=== PATIENT | female | born 1960 | race Caucasian/White ===

== ENCOUNTER → 2016-12-03 | Outpatient (CLI) | payer BC ==
--- NOTE | 2016-12-03 09:03 | MR ---
MRI CERVICAL SPINE: CLINICAL HISTORY: Cervicalgia per order. Headaches with neck pain causing tingling and pain in arm an d hands per patient. TECHNIQUE: Multiplanar, multisequence imaging of the cervical spine is performed without with IV cont rast. COMPARISON: None. FINDINGS: Sagittal images of the cervical spine show the craniocervical junction to appear within nor mal limits. The cervical and upper thoracic spinal cord is normal in course, caliber, and signal. Th ere is slight levoconvex scoliotic curvature centered at the cervical thoracic junction which correla michel with CTA chest March 23, 2014. The vertebral body and intravertebral disk heights are normal. Sma ll posterior disc herniations are seen at C4-C5 through C6-C7 levels on sagittal images. Mild anterio r spurring is present at these levels. The bone marrow signal intensity is within normal limits. Axial images show the C2-C3 and C3-C4 levels to appear within normal limits. Axial images at C4-C5 level show lobulated broad-based posterior disc protrusion mildly effacing ante rolateral thecal sac, bilateral neural foramina are patent. Axial images at C5-C6 level lobulated broad-based posterior disc protrusion mildly effacing the anter ior thecal sac with some posterior spurring, bilateral neural foramina are mildly narrowed as there i s some uncovertebral facet arthropathy at this level also present. Axial images at the C6-C7 level show broad-based posterior disc protrusion mildly effacing anterior t hecal sac, there is mild to moderate bilateral neural foraminal narrowing at this level identified. Axial images at C7-T1 level are felt within normal limits. IMPRESSION: Some multilevel degenerative changes in the mid to lower cervical spine as detailed above .
== END | disposition home or self-care (01) ==
LOC: RADMRIMAIN 08:08
PROVIDERS: ATTEND Physician Assistant
DX: M47.812 Spondylosis without myelopathy or radiculopathy, cervical region (principal)
CPT/HCPCS: 72141

== ENCOUNTER → 2017-02-25 | Outpatient (CLI) | payer BC | END | disposition home or self-care (01) | LOC: LABWHC1 11:27 | PROVIDERS: ATTEND Internal Medicine Endocrinology, Diabetes & Metabolism | DX: E03.8 Other specified hypothyroidism (principal) | CPT/HCPCS: 36415; 84443 ==

== ENCOUNTER → 2017-12-16 | Outpatient (CLI) | payer BC ==
[2017-12-16 13:11] LABS: HCT 36.2 % (34.0-46.0); HGB 12.1 gm/dL (11.4-16.0); MCH 32.9 pg (25.0-35.0); MCHC 33.5 g/dL (31.0-37.0); MCV 98.2 fL (80.0-100.0); Mean Platelet Volume 7.5; Platelet Count 316 k/uL (150-450); RBC 3.69 m/uL (3.80-5.40); RDW 13.4 % (11.5-15.5); WBC 7.4 k/uL (3.8-10.6)
[2017-12-16 13:37] LABS: ALT 28 U/L (9-52); AST 21 U/L (14-36)
== END | disposition home or self-care (01) ==
LOC: LABWHC1 12:30
PROVIDERS: ATTEND Psychiatry & Neurology Neurology
DX: G35 Multiple sclerosis (principal)
CPT/HCPCS: 36415; 84450; 84460; 85027; 86480

== ENCOUNTER → 2018-02-11 | Outpatient (CLI) | payer BC ==
[2018-02-11 11:22] VITALS: BP 153/78; PULSE 91; TEMP 97.3; BMI 35.7
--- NOTE | 2018-02-11 12:14 | P.HPOB ---
History of Present Illness H&P Date: 02/11/18 Chief Complaint: The patient is here for her routine gynecologic exam and mammogram. This is a 57-year-old G3 PIII with an LMP of 2004. The patient is here to establish with this office. She states it has been about 20 years since her last pelvic exam. She denies any postmenopausal bleeding. She states she has a small mole between the vulva and leg that she has had "forever" that she would like to have checked. She did have hot flashes but these have improved significantly. She is otherwise without gynecologic complaints. Review of Systems Her weight has been stable. She denies respiratory, cardiac, or G.I. problems. Past Medical History Past Medical History: GERD/Reflux, Hyperlipidemia, Hypertension, Thyroid Disorder (Hypothyroid) Additional Past Medical History / Comment(s): Past ANIMAL HUSBANDRY WORKER history: she has no history of STDs. She had one followed by 2 vaginal deliveries. History of Any Multi-Drug Resistant Organisms: None Reported Past Surgical History: Section Additional Past Surgical History / Comment(s): Colonoscopy 2015 and this was her 2nd. Past Psychological History: Depression Smoking Status: Light tobacco smoker (About 3 cigarettes per day down from half pack per day.) Past Alcohol Use History: None Reported Past Drug Use History: None Reported Additional History: She has been since 1993 and is a certified clinical nursing instructor at the [employer]. Medications and Allergies Home Medications Medication Instructions Recorded Confirmed Type Baclofen [Lioresal] 10 mg PO BID 03/04/14 02/11/18 History Gabapentin [Neurontin] 900 mg PO BID 03/04/14 03/23/14 History Levothyroxine Sodium [Synthroid] 175 mcg PO DAILY 03/04/14 03/23/14 History Lisinopril-Hctz 20-25 mg 1 each PO DAILY 03/04/14 02/11/18 History [Zestoretic 20-25] Meclizine [Antivert] 25 mg PO DAILY PRN 03/04/14 02/11/18 History Primidone [Mysoline] 50 mg PO DAILY 03/04/14 02/11/18 History traZODone HCL [traZODone] 150 mg PO DAILY 03/04/14 02/11/18 History Amantadine HCl [Symmetrel] 0 mg PO BID 03/23/14 02/11/18 History Cetirizine HCl [Zyrtec] mg PO DAILY 02/11/18 History Cholecalciferol (Vitamin D3) 3,000 unit PO DAILY 02/11/18 02/11/18 History [Vitamin D3] Ibuprofen [Motrin] mg PO BID 02/11/18 History Omeprazole [PriLOSEC] mg PO DAILY 02/11/18 History Teriflunomide [Aubagio] mg PO DAILY 02/11/18 History Venlafaxine HCl [Effexor] mg PO BID 02/11/18 History Allergies Allergy/AdvReac Type Severity Reaction Status Date / Time No Known Allergies Allergy Verified 02/11/18 11:22 Exam - Vital Signs Vital signs: Vital Signs Temp Pulse BP 02/11/18 11:16 97.3 F L 91 153/78 Intake and Output 02/10/18 02/11/18 02/11/18 22:59 06:59 14:59 Other: Weight 83.007 kg Height 5'8", BMI 35.7. This is a well-developed well-nourished heavyset white female who is alert and oriented times 3 in no acute distress. HEENT: Within normal limits. NECK: Supple without mass or thyromegaly. CHEST AND LUNGS: Clear to auscultation. HEART: Regular rate and rhythm. BREASTS: Are without mass or discharge. AXILLARY EXAM: Negative for adenopathy. BACK: Negative for CVA tenderness. ABDOMEN: Soft, mildly obese, nontender, without palpable masses. PELVIC EXAM: Normal external genitalia with minimal atrophy. Cervix and vagina appear normal with mild atrophy. There is no unusual discharge. There is no evidence of prolapse. The uterus is midposition, nongravid size and nontender. There are no palpable adnexal masses or tenderness. There is a benign appearing skin tag in the crease between the vulva and left leg which measures approximately 9 x 9 x 9 mm. It is soft and nontender. The patient states that it is been there for more than 20 years.. RECTAL EXAM: rectovaginal exam is negative for mass or tenderness and is negative for occult blood. EXTREMITIES: Nontender. IMPRESSION: 1. 57-year-old menopausal female with normal gynecologic exam. 2. Benign appearing skin tag in the left groin crease. PLAN: 1. Pap smear was performed. 2. Self breast examination was discussed. 3. Screening mammogram will be done today. 4. Osteoporosis prevention was discussed. I recommended bone density screening next year. 5. I have reassured the patient about the benign appearing skin tag. She will call if it is changing or if it is bothersome to her. 6. She will return in one year. I have stressed the importance of yearly pelvic exams and mammograms.
--- NOTE | 2018-02-16 07:13 | MM ---
Reason for exam: screening (asymptomatic). Last mammogram was performed 1 year and 9 months ago. History: Patient is postmenopausal. Physical Findings: A clinical breast exam by your physician is recommended on an annual basis and results should be correlated with mammographic findings. MG Screening Mammo w CAD Bilateral CC and MLO view(s) were taken. Prior study comparison: May 21, 2016, mammogram, performed at [facility]. July 07, 2008, bilateral digital screening mammogram. April 29, 2007, bilateral screening mammogram w/CAD. The breast tissue is heterogeneously dense. This may lower the sensitivity of mammography. Finding: There are typically benign dystrophic, round, regional calcifications in the anterior, central position of the left breast. There is no discrete abnormality. ASSESSMENT: Benign, BI-RAD 2 RECOMMENDATION: Routine screening mammogram of both breasts in 1 year.
== END | disposition home or self-care (01) ==
LOC: WWCWWP 10:58
PROVIDERS: ATTEND Obstetrics & Gynecology
DX: Z12.31 Encounter for screening mammogram for malignant neoplasm of breast (principal)
CPT/HCPCS: 77067

== ENCOUNTER 2018-04-26 22:49 | Emergency (ER) | payer BC ==
[2018-04-26 22:58] VITALS: RESP 18
[2018-04-26] MEDS ORDERED: SODIUM CHLORIDE 0.9% 1,000 ML IV STA (23:02)
--- NOTE | 2018-04-26 23:16 | ED ---
General Adult HPI - General Chief complaint: Syncope Stated complaint: Fall, Head Injury Time Seen by Provider: 04/26/18 23:01 Source: patient, RN notes reviewed, old records reviewed Mode of arrival: wheelchair Limitations: no limitations - History of Present Illness Initial comments: This is a 4-year-old female the ER for evasive syncopal event. Patient has significant times to arouse just prior to get a for work. Patient denies chest pain headache abdominal pain. Patient comes ER no prior history of syncope. No significant history of heart disease or heart attack. Again no chest pain no headache no recent nausea vomiting or illness. No diarrhea. Patient states she did not feel lightheaded or dizzy prior to event she does have a collapse. No significant symptoms prior to event and currently no significant symptoms after. - Related Data Home Medications Medication Instructions Recorded Confirmed Baclofen [Lioresal] 10 mg PO BID 03/04/14 02/11/18 Gabapentin [Neurontin] 900 mg PO BID 03/04/14 03/23/14 Levothyroxine Sodium [Synthroid] 175 mcg PO DAILY 03/04/14 03/23/14 Lisinopril-Hctz 20-25 mg 1 each PO DAILY 03/04/14 02/11/18 [Zestoretic 20-25] Meclizine [Antivert] 25 mg PO DAILY PRN 03/04/14 02/11/18 Primidone [Mysoline] 50 mg PO DAILY 03/04/14 02/11/18 traZODone HCL [traZODone] 150 mg PO DAILY 03/04/14 02/11/18 Amantadine HCl [Symmetrel] 0 mg PO BID 03/23/14 02/11/18 Cetirizine HCl [Zyrtec] mg PO DAILY 02/11/18 Cholecalciferol (Vitamin D3) 3,000 unit PO DAILY 02/11/18 02/11/18 [Vitamin D3] Ibuprofen [Motrin] mg PO BID 02/11/18 Omeprazole [PriLOSEC] mg PO DAILY 02/11/18 Teriflunomide [Aubagio] mg PO DAILY 02/11/18 Venlafaxine HCl [Effexor] mg PO BID 02/11/18 Allergies Allergy/AdvReac Type Severity Reaction Status Date / Time No Known Allergies Allergy Verified 04/26/18 22:58 Review of Systems ROS Statement: Those systems with pertinent positive or pertinent negative responses have been documented in the HPI. ROS Other: All systems not noted in ROS Statement are negative. 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 She had one followed by 2 vaginal deliveries. History of Any Multi-Drug Resistant Organisms: None Reported Past Surgical History: Section Additional Past Surgical History / Comment(s): Colonoscopy 2016 and this was her 2nd. Past Psychological History: Anxiety, Depression Smoking Status: Former smoker Past Alcohol Use History: None Reported Past Drug Use History: None Reported General Exam Limitations: no limitations General appearance: alert, in no apparent distress Head exam: Present: atraumatic, normocephalic, normal inspection Eye exam: Present: normal appearance, PERRL, EOMI. Absent: scleral icterus, conjunctival injection, periorbital swelling ENT exam: Present: normal exam, mucous membranes moist Neck exam: Present: normal inspection. Absent: tenderness, meningismus, lymphadenopathy Respiratory exam: Present: normal lung sounds bilaterally. Absent: respiratory distress, wheezes, rales, rhonchi, stridor Cardiovascular Exam: Present: regular rate, normal rhythm, normal heart sounds. Absent: systolic murmur, diastolic murmur, rubs, gallop, clicks GI/Abdominal exam: Present: soft, normal bowel sounds. Absent: distended, tenderness, guarding, rebound, rigid Extremities exam: Present: normal inspection, full ROM, normal capillary refill. Absent: tenderness, pedal edema, joint swelling, calf tenderness Back exam: Present: normal inspection Neurological exam: Present: alert, oriented X3, CN II-XII intact Psychiatric exam: Present: normal affect, normal mood Skin exam: Present: warm, dry, intact, normal color. Absent: rash Course Vital Signs 04/26/18 04/26/18 04/27/18 22:52 23:19 00:29 Temperature 97.8 F Pulse Rate 85 83 Pulse Rate [ 76 Analysis Or Research Safety Inspector ] Respiratory Rate Blood Pressure 84/51 113/57 Blood Pressure [Sitting] Blood Pressure [Standing] Blood Pressure 95/50 [Supine] O2 Sat by Pulse 97 96 Oximetry 07/07/0704/27/18 04/27/18 00:31 00:33 01:50 Temperature Pulse Rate 72 Pulse Rate [ 86 86 Analysis Or Research Safety Inspector ] Respiratory 18 Rate Blood Pressure 113/59 Blood Pressure 99/57 [Sitting] Blood Pressure 107/58 [Standing] Blood Pressure [Supine] O2 Sat by Pulse 98 Oximetry - Reevaluation(s) Reevaluation #1: 04/27/18 02:03 Spoke with patient at length regarding normal findings, normal rhythm strip, patient ambulate without difficulty emergency room, has no complaints EKG Findings - EKG Comments: EKG Findings:: EKG shows sinus rhythm rate of 85, OR 196, QRS 80, QTC 4:30 Medical Decision Making - Medical Decision Making 58 female the ER for evaluation regarding syncopal event today. Patient is CT which is negative, labwork which is normal. No headache chest pain shortness of breath or abdominal pain. Patient without complaint currently. Patient can be discharged home - Lab Data Result diagrams: 04/26/18 23:08 04/26/18 23:08 Lab Results 04/26/18 04/26/18 04/26/18 Range/Units 23:08 23:08 23:08 WBC 12.6 H (3.8-10.6) k/uL RBC 4.65 (3.80-5.40) m/uL Hgb 14.4 (11.4-16.0) gm/dL Hct 42.6 (34.0-46.0) % MCV 91.8 (80.0-100.0) fL MCH 31.0 (25.0-35.0) pg MCHC 33.8 (31.0-37.0) g/dL RDW 13.8 (11.5-15.5) % Plt Count 355 (150-450) k/uL Neutrophils % 68 % Lymphocytes % 24 % Monocytes % 6 % Eosinophils % 0 % Basophils % 1 % Neutrophils # 8.6 H (1.3-7.7) k/uL Lymphocytes # 3.0 (1.0-4.8) k/uL Monocytes # 0.7 (0-1.0) k/uL Eosinophils # 0.1 (0-0.7) k/uL Basophils # 0.1 (0-0.2) k/uL PT (9.0-12.0) sec INR (<1.2) APTT (22.0-30.0) sec D-Dimer (<0.60) mg/L FEU Sodium 142 (137-145) mmol/L Potassium 3.7 (3.5-5.1) mmol/L Chloride 100 (98-107) mmol/L Carbon Dioxide 26 (22-30) mmol/L Anion Gap 16 mmol/L BUN 24 H (7-17) mg/dL Creatinine 1.50 H (0.52-1.04) mg/dL Est GFR (CKD-EPI)AfAm 43 (>60 ml/min/1.73 sqM) Est GFR (CKD-EPI)NonAf 38 (>60 ml/min/1.73 sqM) Glucose 111 H (74-99) mg/dL Calcium 10.4 H (8.4-10.2) mg/dL Magnesium 1.9 (1.6-2.3) mg/dL Total Bilirubin 0.3 (0.2-1.3) mg/dL AST 26 (14-36) U/L ALT 32 (9-52) U/L Alkaline Phosphatase 93 (38-126) U/L Total Creatine Kinase 94 (30-135) U/L CK-MB (CK-2) 0.7 (0.0-2.4) ng/mL CK-MB (CK-2) Rel Index 0.7 Troponin I <0.012 (0.000-0.034) ng/mL Total Protein 7.4 (6.3-8.2) g/dL Albumin 4.5 (3.5-5.0) g/dL 04/26/18 Range/Units 23:08 WBC (3.8-10.6) k/uL RBC (3.80-5.40) m/uL Hgb (11.4-16.0) gm/dL Hct (34.0-46.0) % MCV (80.0-100.0) fL MCH (25.0-35.0) pg MCHC (31.0-37.0) g/dL RDW (11.5-15.5) % Plt Count (150-450) k/uL Neutrophils % % Lymphocytes % % Monocytes % % Eosinophils % % Basophils % % Neutrophils # (1.3-7.7) k/uL Lymphocytes # (1.0-4.8) k/uL Monocytes # (0-1.0) k/uL Eosinophils # (0-0.7) k/uL Basophils # (0-0.2) k/uL PT 9.3 (9.0-12.0) sec INR 0.9 (<1.2) APTT 20.6 L (22.0-30.0) sec D-Dimer 0.34 (<0.60) mg/L FEU Sodium (137-145) mmol/L Potassium (3.5-5.1) mmol/L Chloride (98-107) mmol/L Carbon Dioxide (22-30) mmol/L Anion Gap mmol/L BUN (7-17) mg/dL Creatinine (0.52-1.04) mg/dL Est GFR (CKD-EPI)AfAm (>60 ml/min/1.73 sqM) Est GFR (CKD-EPI)NonAf (>60 ml/min/1.73 sqM) Glucose (74-99) mg/dL Calcium (8.4-10.2) mg/dL Magnesium (1.6-2.3) mg/dL Total Bilirubin (0.2-1.3) mg/dL AST (14-36) U/L ALT (9-52) U/L Alkaline Phosphatase (38-126) U/L Total Creatine Kinase (30-135) U/L CK-MB (CK-2) (0.0-2.4) ng/mL CK-MB (CK-2) Rel Index Troponin I (0.000-0.034) ng/mL Total Protein (6.3-8.2) g/dL Albumin (3.5-5.0) g/dL - Radiology Data Radiology results: report reviewed (CT brain is negative for acute disease), image reviewed Disposition Clinical Impression: Vasovagal syncope Disposition: HOME SELF-CARE Condition: Good Instructions: Syncope (ED) Is patient prescribed a controlled substance at d/c from ED?: No Referrals: Fausto Wills DO [Primary Care Provider] - 1-2 days
[2018-04-26 23:22] LABS: Basophils # (A) 0.1 k/uL (0-0.2); Basophils % (A) 1 %; Eosinophils # (A) 0.1 k/uL (0-0.7); Eosinophils % (A) 0 %; HCT 42.6 % (34.0-46.0); HGB 14.4 gm/dL (11.4-16.0); Lymphocytes % (A) 24 %; MCHC 33.8 g/dL (31.0-37.0); MCV 91.8 fL (80.0-100.0); Monocytes # (A) 0.7 k/uL (0-1.0); Monocytes % (A) 6 %; Neutrophils # (A) 8.6 k/uL (1.3-7.7); Neutrophils % (A) 68 %; Platelet Count 355 k/uL (150-450); RBC 4.65 m/uL (3.80-5.40); RDW 13.8 % (11.5-15.5); WBC 12.6 k/uL (3.8-10.6)
[2018-04-26 23:30] LABS: Albumin 4.5 g/dL (3.5-5.0); Calcium 10.4 mg/dL (8.4-10.2); Magnesium 1.9 mg/dL (1.6-2.3); Potassium 3.7 mmol/L (3.5-5.1); Total Bilirubin 0.3 mg/dL (0.2-1.3); Total Protein 7.4 g/dL (6.3-8.2)
[2018-04-26 23:39] LABS: Creatine Kinase 94 U/L (30-135)
[2018-04-26 23:40] LABS: D-Dimer 0.34 mg/L FEU (<0.60); INR 0.9 (<1.2); Prothrombin Time 9.3 sec (9.0-12.0)
[2018-04-26 23:43] LABS: Partial Thromboplastin Time 20.6 sec (22.0-30.0)
[2018-04-26 23:53] LABS: Creatine Kinase MB 0.7 ng/mL (0.0-2.4); Troponin I <0.012 ng/mL (0.000-0.034)
--- NOTE | 2018-04-27 00:18 | CT ---
EXAMINATION TYPE: CT brain wo con DATE OF EXAM: 04/26/2018 COMPARISON: HISTORY: No prior, syncope x2 CT DLP: 1012.70 mGycm Automated exposure control for dose reduction was used. FINDINGS: There is some cerebral cortical atrophy. There is patchy hypodensity in the periventricular white mat ter. There is no mass effect nor midline shift. There is no sign of intracranial hemorrhage. The calv arium is intact. There is a 2 x 1 cm area of subcortical hypodensity in the right parietal lobe consi stent with ischemic change. IMPRESSION: THERE IS SOME CEREBRAL ATROPHY AND CHRONIC SMALL VESSEL ISCHEMIA. THERE IS MORE NOTICEABLE RIGHT DANIEL ETAL ISCHEMIA WITH APPARENT SMALL SUBCORTICAL INFARCT.
[2018-04-27] MEDS ORDERED: SODIUM CHLORIDE 0.9% 1,000 ML IV STA (00:37)
[2018-04-27 02:29] VITALS: BP 118/58; PULSE 77; TEMP 98.1
== END 2018-04-27 02:22 | disposition home or self-care (01) ==
LOC: EC 22:49
DX: R55 Syncope and collapse (principal); K21.9 Gastro-esophageal reflux disease without esophagitis; E78.5 Hyperlipidemia, unspecified; I10 Essential (primary) hypertension; E07.9 Disorder of thyroid, unspecified; F32.9 Major depressive disorder, single episode, unspecified; F41.9 Anxiety disorder, unspecified; Z87.891 Personal history of nicotine dependence; Z79.899 Other long term (current) drug therapy
CPT/HCPCS: 36415; 70450; 80053; 82550; 82553; 83735; 84484; 85025; 85379; 85610; 85730; 93005; 96360; 96361; 99285

== ENCOUNTER → 2019-12-09 | Outpatient (CLI) | payer OTHER ==
--- NOTE | 2019-12-09 10:48 | US ---
EXAMINATION TYPE: US abdomen complete DATE OF EXAM: 12/09/2019 COMPARISON: NONE CLINICAL HISTORY: 59-year-old female R94.5 Abnormal results of liver function study. No symptoms. TECHNIQUE:: Multiple sonographic images of the abdomen are obtained. FINDINGS: EXAM MEASUREMENTS: Liver Length: 17.6 cm Gallbladder Wall: 0.2 cm CBD: 7.2 mm Spleen: 10.8 cm Right Kidney: 10.5 x 5.4 x 4.7 cm Left Kidney: 10.3 x 3.8 x 5.5 cm Pancreas: Suboptimal visualization of the pancreatic tail secondary to shadowing from bowel gas. Liver: Upper limits of normal in size. Homogeneous appearance without focal lesion. Gallbladder: wnl Evidence for sonographic Baeza's sign: no CBD: Mildly dilated. Spleen: wnl Right Kidney: 0.9cm midpole shadowing stone . No hydronephrosis Left Kidney: wnl Upper IVC: wnl Abd Aorta: wnl IMPRESSION: 1. Bile duct mildly dilated at 7.2 mm. This may be chronic in this patient. Correlate with alkaline p hosphatase and bilirubin levels to exclude early biliary obstruction. 2. No cholelithiasis or acute cholecystitis. 3. 9 mm nonobstructive right renal calculus.
== END | disposition home or self-care (01) ==
LOC: RADUSWWP 09:03
PROVIDERS: ATTEND Family Medicine
DX: K83.8 Other specified diseases of biliary tract (principal); N20.0 Calculus of kidney
CPT/HCPCS: 76700

== ENCOUNTER → 2020-08-29 | Outpatient (CLI) | payer OTHER | END | disposition home or self-care (01) | LOC: LABWHC1 12:52 | PROVIDERS: ATTEND Family Medicine | DX: Z20.828 Contact with and (suspected) exposure to other viral communicable diseases (principal) | CPT/HCPCS: U0003; C9803 ==

== ENCOUNTER → 2020-12-06 | Outpatient (CLI) | payer OTHER ==
[2020-12-06 20:57] LABS: T4, Free (Free Thyroxine) 1.4 ng/dL (0.80-1.80)
[2020-12-06 21:11] LABS: Basophils # (A) 0.07 X 10*3/uL (0.00-0.10); Basophils % (A) 0.8 %; Eosinophils # (A) 0.19 X 10*3/uL (0.04-0.35); Eosinophils % (A) 2.1 %; HCT 41.5 % (37.2-46.3); HGB 13.7 g/dL (12.0-15.0); Lymphocytes # (A) 2.91 X 10*3/uL (0.90-5.00); Lymphocytes % (A) 31.6 %; MCH 32.1 pg (27.0-32.0); MCV 97.2 fL (80.0-97.0); Mean Platelet Volume 11.6 fL (9.5-12.2); Monocytes % (A) 7.6 %; Neutrophils % (A) 57.5 %; Platelet Count 292 X 10*3/uL (140-440); RBC 4.27 X 10*6/uL (4.10-5.20); RDW 12.9 % (11.5-14.5); WBC 9.21 X 10*3/uL (4.50-10.00)
[2020-12-06 21:31] LABS: African American GFR (CKD) 91.6 (60.0-200.0); Albumin/Globulin Ratio 2.17 (1.60-3.17); Anion Gap 9.9 mmol/L (4.00-12.00); BUN/Creat Ratio 23.75 Ratio (12.00-20.00); Calcium 9.6 mg/dL (8.7-10.3); Carbon Dioxide 28.1 mmol/L (21.6-31.8); Folate, Serum 15.5 ng/mL; Globulin 2.3 g/dL (1.6-3.3); Potassium 4.2 mmol/L (3.5-5.5); Total Bilirubin 0.4 mg/dL (0.2-1.2); Total Protein 7.3 g/dL (6.2-8.2)
[2020-12-06 21:42] LABS: Hepatitis B Core IgM Non-Reactive (Non-Reactive); Hepatitis B Surface AB- Quant 32.9 mIU/mL; Hepatitis B Surface Antibody Reactive (Non-Reactive); Hepatitis B Surface Antigen Non-Reactive (Non-Reactive)
[2020-12-06 22:33] LABS: HIV 2 AB Non-Reactive (Non-Reactive); HIV AB P24 Non-Reactive (Non-Reactive); HIV P24 AG Non-Reactive (Non-Reactive)
[2020-12-06 23:06] LABS: Hemoglobin A1C 6.2 % (4.0-6.0)
[2020-12-08 04:47] LABS: Varicella IgM Antibody 1.17 INDEX (<=0.90)
== END | disposition home or self-care (01) ==
LOC: LABWHC1 13:51
PROVIDERS: ATTEND Psychiatry & Neurology Pain Medicine
DX: G35 Multiple sclerosis (principal)
CPT/HCPCS: 36415; 80053; 82306; 82607; 82746; 83036; 84207; 84425; 84439; 84443; 84481; 84591; 85025; 86704; 86705; 86706; 86787; 87340; 87390

== ENCOUNTER → 2021-01-04 | Outpatient (CLI) | payer OTHER ==
--- NOTE | 2021-01-04 10:06 | CT ---
EXAMINATION TYPE: CT abdomen pelvis wo con DATE OF EXAM: 01/04/2021 COMPARISON: Right flank pain HISTORY: Rt flank pain CT DLP: 1003 mGycm Automated exposure control for dose reduction was used. TECHNIQUE: Helical acquisition of images was performed from the lung bases through the pelvis. FINDINGS: LUNG BASES: No significant abnormality is appreciated. LIVER/GB: No significant abnormality is appreciated. PANCREAS: No significant abnormality is seen. SPLEEN: Accessory spleen incidentally noted. ADRENALS: No significant abnormality is seen. KIDNEYS: 4 mm nonobstructing right renal calculus. No evidence of left renal stone. There is cortical loss involving the right kidney. Subcentimeter upper pole left renal lesion too small to characteriz e. FREE AIR: No free air is visualized ADENOPATHY: None visualized. OSSEOUS STRUCTURES: Hypertrophic and degenerative changes spine. BOWEL: No significant abnormality is seen. OTHER: Fat-containing periumbilical hernia. Atherosclerotic change of the vasculature. Aorta of corie l caliber. Within the right gluteus appears to be intramuscular lipoma measuring 1.8 cm IMPRESSION: 1. Nonobstructing 4 mm right renal calculus
== END ==
LOC: RADCTMAIN 08:39
PROVIDERS: ATTEND Urology
DX: N20.0 Calculus of kidney (principal)
CPT/HCPCS: 74176

== ENCOUNTER 2021-01-15 11:00 | Day surgery (SDC) | payer OTHER ==
[2021-01-15] MEDS ORDERED: LIDOCAINE 1% (10MG/ML) FOR IV START INTRADERMA ONE (11:44)
[2021-01-15] MEDS ORDERED: LACTATED RINGERS 1,000 ML IV ONE (11:45)
[2021-01-15] MEDS ORDERED: PROPOFOL 10 MG/ML 20 ML VIAL IV ONE (11:53)
[2021-01-15 11:54] VITALS: RESP 16; TEMP 97.4
--- NOTE | 2021-01-15 12:26 | P.PCN ---
Date of Procedure: 01/15/21 Description of Procedure: BRIEF HISTORY: Patient is a 60-year-old female presenting for outpatient colonoscopy for evaluation of change in bowel habits. Patient has a past history of colonoscopy or 5 years ago polypectomy that time. Patient has been having some smaller caliber bowel movements as well as some loose stool. She also reports left lower quadrant abdominal pain. PROCEDURE PERFORMED: Colonoscopy with polypectomy. PREOPERATIVE DIAGNOSIS: Altered bowel function, less colonoscopy over 5 years ago, personal history of colon polyps. ESTIMATED BLOOD LOSS: Minimal. IV sedation per Anesthesia. PROCEDURE: After informed consent was obtained, the patient, was brought into the endoscopy unit. IV sedation was administered by Anesthesia under continuous monitoring. Digital rectal examination was normal. Initially the Olympus CF-190 flexible video colonoscope was then inserted in the rectum, gradually advanced into the cecum without any difficulty. Careful examination was performed as the scope was gradually being withdrawn. Ileocecal valve and the appendiceal orifice were visualized and appeared normal. Prep was fair with some liquid stool throughout the colon with some solid components. Mucosa of the cecum, ascending colon, transverse colon, descending colon, sigmoid colon, and rectum appeared normal, except for a flat 4 mm sigmoid colon polyp removed with cold snare polypectomy. Retroflexion was performed in the rectum and no lesions were seen. The patient tolerated the procedure well. IMPRESSION: Sigmoid colon polyp removed with cold snare polypectomy. Fair prep. RECOMMENDATIONS: Findings of this examination were discussed with the patient interval family. Okay to resume diet. Okay to resume medications. Await pathology from polypectomy. Recommend repeat colonoscopy in 3 years for fair prep and colon polyp.
[2021-01-15 12:46] VITALS: BP 131/83; PULSE 85
== END 2021-01-15 12:57 | disposition home or self-care (01) ==
LOC: ORWHC2ENDO 11:00
PROVIDERS: ATTEND Internal Medicine
DX: K63.5 Polyp of colon (principal); Z86.010 Personal history of colon polyps; Z87.891 Personal history of nicotine dependence; I10 Essential (primary) hypertension; E78.5 Hyperlipidemia, unspecified; J45.909 Unspecified asthma, uncomplicated; E03.9 Hypothyroidism, unspecified; G35 Multiple sclerosis; Z98.891 History of uterine scar from previous surgery; Z79.890 Hormone replacement therapy; Z79.1 Long term (current) use of non-steroidal anti-inflammatories (NSAID); Z79.899 Other long term (current) drug therapy
CPT/HCPCS: 88305; 45385; J2704

== ENCOUNTER → 2021-02-19 | Outpatient (CLI) | payer OTHER ==
[2021-02-19 14:02] LABS: Basophils # (A) 0.1 k/uL (0-0.2); Basophils % (A) 1 %; Eosinophils # (A) 0.2 k/uL (0-0.7); Eosinophils % (A) 3 %; HCT 40.7 % (34.0-46.0); HGB 14.1 gm/dL (11.4-16.0); Lymphocytes # (A) 2.3 k/uL (1.0-4.8); Lymphocytes % (A) 29 %; MCH 32.3 pg (25.0-35.0); MCHC 34.6 g/dL (31.0-37.0); MCV 93.2 fL (80.0-100.0); Monocytes # (A) 0.4 k/uL (0-1.0); Monocytes % (A) 5 %; Neutrophils # (A) 4.7 k/uL (1.3-7.7); Neutrophils % (A) 60 %; Platelet Count 270 k/uL (150-450); RBC 4.36 m/uL (3.80-5.40); RDW 12.6 % (11.5-15.5); WBC 7.8 k/uL (3.8-10.6)
[2021-02-19 14:07] LABS: Appearance,Urine Cloudy (Clear); Bacteria,Urine Many /hpf; Bilirubin,Urine Negative (Negative); Blood,Urine Negative (Negative); Color,Urine Yellow; Glucose,Urine (UA) Negative (Negative); Ketones,Urine Negative (Negative); Leukocyte Esterase,Urine Large (Negative); Mucus,Urine Occasional /hpf; Nitrite,Urine Negative (Negative); Protein,Urine Negative (Negative); RBC,Urine 1 /hpf (0-5); Specific Gravity,Urine 1.013 (1.001-1.035); Squamous Epithelial Cell,Urine 11 /hpf (0-4); Urobilinogen,Urine <2.0 mg/dL (<2.0); WBC,Urine 31 /hpf (0-5)
[2021-02-19 14:13] LABS: African American GFR (CKD) >90 (>60 ml/min/1.73 sqM); Anion Gap 11 mmol/L; Blood Urea Nitrogen 13 mg/dL (7-17); Calcium 9.8 mg/dL (8.4-10.2); Carbon Dioxide 23 mmol/L (22-30); Chloride 106 mmol/L (98-107); Glucose 106 mg/dL (74-99); Non-African American GFR(CKD) >90 (>60 ml/min/1.73 sqM); Potassium 4.1 mmol/L (3.5-5.1); Sodium 140 mmol/L (137-145)
== END | disposition home or self-care (01) ==
LOC: LABPAT 13:22
PROVIDERS: ATTEND Urology
DX: Z01.812 Encounter for preprocedural laboratory examination (principal); N20.0 Calculus of kidney
CPT/HCPCS: 80048; 81001; 85025; 87077; 87086; 87186

== ENCOUNTER 2021-02-26 07:52 | Day surgery (SDC) | payer OTHER ==
[2021-02-22 09:51] VITALS: BMI 38.0
--- NOTE | 2021-02-23 14:28 | P.HPIHPCON ---
History of Present Illness H&P Date: 02/23/21 Chief Complaint: right sided renal stone This is a 60 yo female with hx of 4mm right sided renal stone, she is symptomatically secondary to her stone. discussed with her the option of doing ureteroscopy versus ESWL given her symptoms. Discussed the risk and benefit of each approach. She agreed to proceed with ureteroscopy with holmium laser. Discussed the risk which includes but not limited to bleeding, infection, injury to the ureter, and need of additional operation. Discussed that her pain might not resolve even with removing the stone. She understood all the risk and agreed to proceed with right-sided ureteroscopy, with holmium laser lithotripsy, stone basketing and stent placement Consent for Procedure: I have explained the operation/procedure to the patient, including the risks, benefits, side effects, alternative therapies (including not receiving the proposed treatment or service), the likelihood of the patient achieving his/her goals, and potential recuperation problems for the procedure/sedation/analgesia, as well as any blood products, if indicated. I also explained to the patient the risks, benefits and side effects of the alternatives, as well as the risks related to not receiving the proposed procedure, care, treatment, or services. Past Medical History Past Medical History: GERD/Reflux, Hyperlipidemia, Hypertension, Musculoskeletal Disorder, Thyroid Disorder Additional Past Medical History / Comment(s): MS. AMARO STONES History of Any Multi-Drug Resistant Organisms: None Reported Past Surgical History: Section Additional Past Surgical History / Comment(s): Colonoscopy X2 Past Anesthesia/Blood Transfusion Reactions: No Reported Reaction Smoking Status: Former smoker - Past Family History Daughter(s) Family Medical History: Musculoskeletal Disorder, Thyroid Disorder Additional Family Medical History / Comment(s): MS Medications and Allergies Home Medications Medication Instructions Recorded Confirmed Type Baclofen [Lioresal] 10 mg PO TID 03/04/14 02/22/21 History Gabapentin [Neurontin] 900 mg PO BID 03/04/14 02/22/21 History Meclizine [Antivert] 25 mg PO DAILY PRN 03/04/14 02/22/21 History Primidone [Mysoline] 50 mg PO BID 03/04/14 02/22/21 History traZODone HCL [traZODone] 150 mg PO HS 03/04/14 02/22/21 History amantadine HCL [Symmetrel] 100 mg PO BID 03/23/14 02/22/21 History Ibuprofen [Motrin] 800 mg PO BID 02/11/18 02/22/21 History Albuterol Inhaler [Ventolin Hfa 1 puff INHALATION BID PRN 01/15/21 02/22/21 History Inhaler] Atorvastatin [Lipitor] 40 mg PO DAILY 01/15/21 02/22/21 History Ergocalciferol [Vitamin D2 (1250 1,250 mcg PO TU 01/15/21 02/22/21 History Mcg = 90444 Iu)] Fluticasone Propionate [Flonase 1 spray EA NOSTRIL BID 01/15/21 02/22/21 History Allergy Relief] Levothyroxine Sodium 137 mcg PO DAILY 01/15/21 02/22/21 History Lisinopril-Hctz 20-12.5 mg 1 tab PO DAILY 01/15/21 02/22/21 History [Zestoretic 20-12.5] Metoprolol Succinate (ER) [Toprol 100 mg PO DAILY 01/15/21 02/22/21 History Xl] Venlafaxine HCl [Effexor XR] 75 mg PO DAILY 01/15/21 02/22/21 History Venlafaxine HCl [Effexor XR] 150 mg PO DAILY 01/15/21 02/22/21 History Dicyclomine [Bentyl] 10 mg PO TID 02/22/21 02/22/21 History Allergies Allergy/AdvReac Type Severity Reaction Status Date / Time No Known Allergies Allergy Verified 02/22/21 09:41 Surgical - Exam - General well developed, well nourished, no distress, moderate pain - Eyes PERRL, normal ocular movement - Respiratory normal expansion, normal respiratory effort Assessment and Plan Assessment: 60-year-old female with symptomatic 4 mm right-sided renal stone -OR for right-sided ureteroscopy, with holmium laser lithotripsy, stone basketing and stent placement
[~2021-02-26 07:52] MED LIST: DEXAMETHASONE SOD PHOSPHATE 4 MG/ML 1 ML VIAL IV ONE; HYDROmorphone 0.5 MG/0.5 ML SYRINGE IVP PRN; LACTATED RINGERS 1,000 ML IV SCH; ONDANSETRON 4 MG/2 ML VIAL IVP ONE
--- NOTE | 2021-02-26 08:11 | XR ---
KUB HISTORY: Kidney stone Frontal KUB is submitted and correlated to CT scan 01/04/2021 Calcification is seen over the right kidney as on prior CT measuring approximately 6-7 mm. There is a large amount of retained fecal debris throughout the distribution of the colon. No evident pneumoper itoneum. Probable vascular calcifications are present within the pelvis. Degenerative disc changes pr esent in the visualized spine. IMPRESSION: Right-sided nephrolithiasis.
[2021-02-26] MEDS ORDERED: LIDOCAINE 1% (10MG/ML) FOR IV START INTRADERMA ONE (08:45)
[2021-02-26] MEDS ORDERED: MIDAZOLAM 2 MG/2 ML VIAL IVP ONE (08:53)
[2021-02-26] MEDS ORDERED: SUCCINYLCHOLINE CHLORIDE 100 MG/5 ML SYR IV ONE (10:10)
[2021-02-26] MEDS ORDERED: fentaNYL (PF) 50 MCG/ML 2 ML AMP ONE (10:10)
[2021-02-26] MEDS ORDERED: PHENYLEPHRINE-0.9% NACL SYG 1,000 MCG/10 ML SYRINGE ONE (10:10)
[2021-02-26] MEDS ORDERED: WATER FOR INJECTION, STERILE 10 ML VIAL IV ONE (10:10)
[2021-02-26] MEDS ORDERED: LIDOCAINE 1% INJ 10MG/ML (20 ML MDV) ONE (10:10)
[2021-02-26] MEDS ORDERED: PROPOFOL 10 MG/ML 20 ML VIAL IV ONE (10:10)
[2021-02-26] MEDS ORDERED: ePHEDrine SULFATE/0.9% NACL/PF 50 MG/5 ML SYRINGE IV ONE (10:10)
[2021-02-26] MEDS ORDERED: LACTATED RINGERS 1,000 ML IV ONE (11:04)
--- NOTE | 2021-02-26 11:14 | P.OP ---
Date of Procedure: 02/26/21 Preoperative Diagnosis: Right renal stone Postoperative Diagnosis: Right renal stone, renal calyceal diverticulum Procedure(s) Performed: Cystoscopy, right ureteroscopy, incision of calyceal diverticulum, and stent placement Implants: 6-Ugandan by 24 cm stent Anesthesia: JACKIE Surgeon: Dhruv Boyer Estimated Blood Loss (ml): 30 Pathology: none sent Condition: stable Disposition: PACU Indications for Procedure: This is a 60 yo female with hx of 4mm right sided renal stone, she is symptomatically secondary to her stone. discussed with her the option of doing ureteroscopy versus ESWL given her symptoms. Discussed the risk and benefit of each approach. She agreed to proceed with ureteroscopy with holmium laser. Discussed the risk which includes but not limited to bleeding, infection, injury to the ureter, and need of additional operation. Discussed that her pain might not resolve even with removing the stone. She understood all the risk and agreed to proceed with right-sided ureteroscopy, with holmium laser lithotripsy, stone basketing and stent placement Operative Findings: Right sided mid-calyceal diverticulum Description of Procedure: Patient was brought to the operating room, general anesthesia was induced. She was prepped and draped in sterile fashion a placement dorsal lithotomy position. A cystoscopy fitted with 21 sheath was inserted per urethra, cystoscopy was performed showed no abnormality within the bladder. Attention was then carried to the right sided orifice which was intubated with a sensor wire. Under fluoroscopy a 1113 Ugandan access sheath was passed over the wire into the proximal ureter. Was advanced through the sheath and renoscopy was performed which showed no stones within the kidney, but of note there was a pinpoint mid calyceal diverticulum. A sensor wire was advanced through the calyceal diverticulum and on fluoroscopy and the radio opaque stone can be seen within the diverticulum. At this time the decision was made to perform laser incision of calyceal diverticulum. Using the holmium laser and incision was made along the diverticulum neck. An incision was made the scope was advanced through the opening, there was some evidence of parenchymal bleeding which made visualization of the stone very difficult, given the limited visualization decision was made not to perform laser lithotripsy of the stone at this time. At this time the wire was advanced into the diverticulum and the scope was removed with the wire in place. Pullback ureteroscopy showed no injury to the ureter. Next a ureteral stent was passed over the wire, the proximal curl was visualized on fluoroscopy and distal curl was was using the cystoscope. The bladder was emptied and of the case. Patient tolerated the procedure well was taken to PACU in stable condition
[2021-02-26 11:17] VITALS: TEMP 97.1
--- NOTE | 2021-02-26 11:24 | FL ---
Fluoroscopy HISTORY: Pain 24 seconds fluoroscopy time supplied to the referring clinician. 1 intraoperative C-arm images docum ent the procedure. See dictated report from urology.
[2021-02-26] MEDS ORDERED: IBUPROFEN 200 MG TAB PO ONE (12:05)
[2021-02-26 12:07] VITALS: RESP 18
[2021-02-26 12:48] VITALS: BP 130/73; PULSE 79
== END 2021-02-26 13:02 | disposition home or self-care (01) ==
LOC: OR 07:52
PROVIDERS: ATTEND Urology
DX: N20.0 Calculus of kidney (principal); N28.89 Other specified disorders of kidney and ureter; K21.9 Gastro-esophageal reflux disease without esophagitis; K58.9 Irritable bowel syndrome, unspecified; I10 Essential (primary) hypertension; E78.5 Hyperlipidemia, unspecified; G35 Multiple sclerosis; F32.9 Major depressive disorder, single episode, unspecified; Z79.890 Hormone replacement therapy; Z79.899 Other long term (current) drug therapy; Z87.442 Personal history of urinary calculi; Z87.891 Personal history of nicotine dependence
CPT/HCPCS: 74018; 52351; 52332; C2625; C1769; J2250; J1100; J0690; J2405; J2001; J3010; J2370; J0330; J2704

== ENCOUNTER → 2023-11-17 | Outpatient (CLI) | payer BC, MEDICARE ==
[2023-11-17 19:02] LABS: BUN/Creat Ratio 19.14 Ratio (12.00-20.00); Blood Urea Nitrogen 13.4 mg/dL (9.0-27.0); Carbon Dioxide 22.5 mmol/L (21.6-31.8); Chloride 102 mmol/L (96-109); Glucose 111 mg/dL (70-110); Potassium 3.5 mmol/L (3.5-5.5); Sodium 141 mmol/L (135-145)
== END | disposition home or self-care (01) ==
LOC: LABWHC1 14:25
PROVIDERS: ATTEND Internal Medicine Interventional Cardiology
DX: I10 Essential (primary) hypertension (principal)
CPT/HCPCS: 36415; 80048; 82088; 82533; 83835; 84244; 84443

== ENCOUNTER → 2023-11-19 | Outpatient (CLI) | payer BC, MEDICARE ==
--- NOTE | 2023-11-19 13:17 | FL ---
EXAMINATION TYPE: FL barium swallow w video DATE OF EXAM: 11/19/2023 CLINICAL HISTORY: 63-year-old female R1 3.13, pharyngeal phase dysphagia. Dry mouth and sensation of food sticking in the throat. TECHNIQUE: Deglutition study is performed utilizing thin liquid barium, barium thick applesauce, and barium coated cracker. COMPARISON: None. Total fluoroscopy time 1 minute 45 seconds Total images: None. Real-time fluoroscopy support was provided to speech pathology. Total DAP: 15 mGycm2. FINDINGS: The oral and pharyngeal phases show satisfactory initiation and propagation with all modalities teste d. Normal mastication is seen with solid modalities tested. There is no evidence of penetration or aspiration with any modality tested. No significant pharyngeal residue was appreciated. IMPRESSION: No penetration or aspiration. Please refer to speech therapist notes for further details if necessar y.
== END | disposition home or self-care (01) ==
LOC: RADFLMAIN 11:15
PROVIDERS: ATTEND Otolaryngology
DX: R13.13 Dysphagia, pharyngeal phase (principal)
CPT/HCPCS: 74230

== ENCOUNTER → 2023-12-18 | Outpatient (CLI) | payer BC, MEDICARE | END | disposition home or self-care (01) | LOC: LABWHC1 13:52 | PROVIDERS: ATTEND Otolaryngology | DX: K11.7 Disturbances of salivary secretion (principal) | CPT/HCPCS: 36415; 86038; 86235 ==

== ENCOUNTER → 2024-01-15 | Outpatient (CLI) | payer MEDICARE ==
--- NOTE | 2024-01-15 21:30 | US ---
EXAMINATION TYPE: US renal artery duplex complet DATE OF EXAM: 01/15/2024 COMPARISON: NONE relevant CLINICAL INDICATION: Female, 63 years old with history of I10 ESSENTIAL (PRIMARY) HYPERTENSION; HTN x ? years, has changed and increased medications recently and is still >330/110 MEASUREMENTS: RENAL SIZE: Right Kidney: 10.7 x 4.9 x 5.1 cm Left Kidney: 11.3 x 5.3 x 5.5 cm Right Kidney: wnl Left Kidney: wnl Abd Aorta: Calcified plaque seen throughout RESISTANCE INDEX Right: 0.82 Left: 0.85 RA/AO RATIO (< 3.5 ) Right: 0.42 Left: 0.97 RENAL ARTERY VELOCITY ( < 180 cm/s) Right: 42 Left: 98 E Commerce Manager Notes: Unremarkable exam IMPRESSION: 1. Unremarkable renal ultrasound
== END | disposition home or self-care (01) ==
LOC: RADUSWWP 07:08
PROVIDERS: ATTEND Internal Medicine Cardiovascular Disease
DX: I10 Essential (primary) hypertension (principal)
CPT/HCPCS: 93975